=== PATIENT | male | born 1990 | race Caucasian/White ===

== ENCOUNTER 2017-01-22 02:20 | Emergency (ER) | payer SELFPAY ==
[~2017-01-22] VITALS: Ht 167.6 cm; Wt 81.0 kg
[2017-01-22 02:28] VITALS: Ht 167.6 cm; Wt 81.0 kg
--- NOTE | 2017-01-22 03:10 | ERD ---
ER Documentation Chief Complaint Date/Time DATE: 01/22/17 TIME: 03:03 Chief Complaint feeling anxious/nervous, states applied lotion/poison on him. no rash HPI 26-year-old anxious male presents with chief complaint of rash and generalized body aches which he claims began after his applied a lotion which he believes may have been poisonous to his skin at around 2 AM this morning. He denies pruritus, nausea, vomiting, facial swelling, shortness of breath, and chest pain. He also reports smoking methamphetamine earlier this evening. No aggravating or alleviating factors. Has not tried any medications for relief of his symptoms. ROS All systems reviewed and are negative except as per history of present illness. Allergies Allergies: Coded Allergies: No Known Drug Allergies (Verified Allergy, Unknown, 01/22/17) PMhx/Soc Medical and Surgical Hx: pt denies Medical Hx, pt denies Surgical Hx History of Surgery: No Anesthesia Reaction: No Hx Neurological Disorder: No Hx Respiratory Disorders: No Hx Cardiac Disorders: No Hx Psychiatric Problems: No Hx Miscellaneous Medical Probl: No Hx Alcohol Use: Yes Hx Substance Use: Yes Hx Tobacco Use: Yes Smoking Status: Current every day smoker Physical Exam Vitals Vital Signs Date Time Temp Pulse Resp B/P Pulse Ox O2 Delivery O2 Flow Rate FiO2 01/22/17 04:03 99.0 79 18 131/94 100 Room Air 01/22/17 02:28 99.0 120 20 134/95 100 Physical Exam GENERAL: Non-toxic. No apparent signs of distress. Anxious. HEENT: Atraumatic. Bilateral eyes are PERRL EOM intact. Normal conjunctiva, no injection. No eyelid or lower eyelid swelling noted. Ears: Normal tympanic membrane, no erythema or bulging. No ear canal swelling. No ear discharge. Nose : no nasal discharge. Throat: Oropharynx normal. Tongue pink and dry. No tonsillar swelling or tonsillar exudates. No lymphadenopathy. No lip swelling. No swelling in the oropharynx. Airway is patent. LUNGS: Clear to auscultation. No accessory muscle use. No wheezing, no crackles. No signs or symptoms of respiratory distress. No stridor. HEART: Regular rate and rhythm. No murmurs, clicks, rubs or gallops. ABDOMEN: Soft, nontender and nondistended. Bowel sounds positive. No rebound or guarding. No gross peritoneal signs. No Meléndez or McBurney point tenderness. No gross masses. EXTREMITIES: No peripheral cyanosis or edema. No focal pain or notable trauma. Full range of motion. Good capillary refill. NEURO: The patient moves all 4 extremities with 5/5 strength. Cranial nerves are grossly intact. Normal mental status for age. Good muscle tone. SKIN: Several excoriations over bilateral lower extremities and bilateral upper extremities, with no associated rash. There is no apparent petechiae, erythema or swelling. Good skin turgor. Results 24 hrs Current Medications Medications (Trade) Dose Ordered Sig/Kyle Route PRN Reason Start Time Stop Time Status Last Admin Dose Admin Lorazepam (Ativan) 1 mg ONCE ONCE PO 01/22/17 03:30 01/22/17 03:31 DC 01/22/17 03:06 Procedures/MDM Patient appears to be extremely anxious during examination he presented in triage with a pulse of 120 bpm, reports generalized body aches and rash after his applied a "poisonous" cream all over his body. I asked the patient to reveal areas of his body with the rash, he shows me several excoriations over bilateral upper extremities which are not associated with any rash. Appears the patient has been picking at his skin. After repeatedly questioning the patient further he admitted to using methamphetamine earlier this evening. He shows no signs of allergic reaction, has no urticaria, no stridor or wheezing on exam, no facial swelling, no swelling in the oropharynx. I have low suspicion for allergic reaction. The patient's symptoms are likely due to his methamphetamine use and I reassured them are not likely due to topical cream that was applied to him earlier this evening, I ordered 1 mg of Ativan to be administered in the ER. Will reassess patient after treatment. Patient's pulses decreased, he appears to be less anxious. Reports mild relief. At this time low suspicion for suicidal homicidal ideation, anaphylaxis , scabies, and overdose. He is stable for discharge and outpatient management. Advised to follow with PCP in 1-2 days. Departure Diagnosis: Primary Impression: Anxiety Additional Impression: Methamphetamine use Condition: Good Sadaf Lewis PA-C January 22, 2017 03:10 Sadaf Lewis PA-C January 22, 2017 03:10
[2017-01-22] MEDS ORDERED: LORAZEPAM 1 MG TAB PO ONE (03:30)
[2017-01-22 04:03] VITALS: BP 131/94; PULSE 79; RESP 18; TEMP 99
== END 2017-01-22 04:06 | disposition home or self-care (01) ==
LOC: FTE 02:20
DX: F41.9 Anxiety disorder, unspecified (principal); F15.90 Other stimulant use, unspecified, uncomplicated; F17.210 Nicotine dependence, cigarettes, uncomplicated
CPT/HCPCS: 99283